=== PATIENT | male | born 1990 | race Caucasian/White ===

== ENCOUNTER 2017-05-16 16:08 | Emergency (ER) | payer BC, OTHER ==
[2017-05-16] MEDS ORDERED: Sodium Chloride 0.9% 2.5 ML Syringe FLUSH PRN (16:13)
[2017-05-16] MEDS ORDERED: Sodium Chloride 0.9% 10 ML Syringe FLUSH PRN (16:13)
[2017-05-16] MEDS ORDERED: Ondansetron 4 MG/2 ML SDV IVPUSH ONE (16:14)
[2017-05-16] MEDS ORDERED: Morphine 2 MG/ML Syringe IVPUSH ONE (16:14)
[2017-05-16] MEDS ORDERED: HYDROmorphone 1 MG/ML Syringe IVPUSH PRN ×2 (16:20→17:38)
[2017-05-16] MEDS ORDERED: Metoclopramide 10 MG/2 ML SDV IV ONE (16:20)
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
[2017-05-16 17:05] LABS: CHLORIDE,CL 108 mmol/L (98-110); SODIUM,NA 141 mmol/L (136-146)
[2017-05-16] MEDS ORDERED: Sodium Chloride 0.9% 1,000 ML IV ONE (17:25)
[2017-05-16] MEDS ORDERED: Ketorolac 30 MG/ML SDV IVPUSH ONE (18:11)
[2017-05-16 19:42] VITALS: BP 135/83
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
--- NOTE | 2017-05-17 11:52 | CR ---
EXAM DATE: 05/16/17 PATIENT'S AGE: 26 Patient: EARNEST BERGERON Facility: [place], [place] Site . Site : 1990 Study: XRay Chest [id number]/21/2017 5:00:21 PM Ordering Physician: Haja Rai Final Report: HISTORY: Pain, shortness of breath. FINDINGS: PA and lateral chest radiograph demonstrates EEG leads overlying the thorax. The cardiac silhouette is normal. The superior mediastinum is slender. No consolidation, pleural effusion or pneumothorax is seen. No displaced rib fracture is identified. IMPRESSION: No acute cardiopulmonary disease. Dictated by Rahel Salcido MD @ 05/16/2017 5:21:50 PM Dictated by: Rahel Salcido MD @ 05/16/2017 17:21:57 (Electronic Signature) Report Signed by Proxy. [facility]OREJosh
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
== END 2017-05-16 19:28 | disposition home or self-care (01) ==
LOC: MW.ED 16:08
DX: S09.8XXA Other specified injuries of head, initial encounter (principal); S19.9XXA Unspecified injury of neck, initial encounter; S63.502A Unspecified sprain of left wrist, initial encounter; R20.0 Anesthesia of skin; Z88.5 Allergy status to narcotic agent; W22.8XXA Striking against or struck by other objects, initial encounter; Y99.0 Civilian activity done for income or pay
CPT/HCPCS: 29125; 36415; 70450; 71010; 72125; 73100; 80053; 81003; 85025; 93005; J1170; J1885; J2765; J3360; J7040; 96361; 96374; 96375; 96376; 99283; 99285-25

== ENCOUNTER 2017-09-05 19:54 | Emergency (ER) | payer OTHER ==
[2017-09-05] MEDS ORDERED: Ketorolac 60 MG/2 ML SDV IM ONE (21:56)
[2017-09-05] MEDS ORDERED: Acetaminophen/HYDROcodone 325-7.5 MG Tab PO ONE (21:56)
[2017-09-05] MEDS ORDERED: Bacitracin Oint 1 GM U/D Packet TOP ONE (21:58)
--- NOTE | 2017-09-05 22:01 | EDM.PDOC ---
ED HPI GENERAL MEDICAL PROBLEM - General Chief Complaint: Lower Extremity Injury/Pain Stated Complaint: PT HURT LT LEG Time Seen by Provider: 09/05/17 21:52 - History of Present Illness INITIAL COMMENTS - FREE TEXT/NARRATIVE: HISTORY AND PHYSICAL: History of present illness: Patient is a 27-year-old healthy man who presents after sustaining a left knee injury while at work today. He was trying to jump over a hole and misjudged it and did not make it to the other side and impacted the front of his loredo area on the left causing an abrasion/superficial laceration and then landed full weight onto his leg potentially twisting his left knee. He did not hit his head pass out or black out and has no proximal hip pain and no other extremity complaints except the left knee and left tib-fib area. His ankle and foot on that side are fine and he has no neurosensory changes in the leg. He said is more painful if he tries to put weight on it. He has not taken anything for the pain prior to coming here. He says his tetanus shot is up-to-date Review of systems: As per history of present illness and below otherwise all systems reviewed and negative. Past medical history: As per history of present illness and as reviewed below otherwise noncontributory. Surgical history: As per history of present illness and as reviewed below otherwise noncontributory. Social history: No reported history of drug or alcohol abuse. Family history: As per history of present illness and as reviewed below otherwise noncontributory. Physical exam: Gen.: Well-developed well-nourished man who is nontoxic and is somewhat exaggerated with my exam. He is cooperative and vital signs are noted by me HEENT: Atraumatic, normocephalic,, negative for conjunctival pallor or scleral icterus, mucous membranes moist, throat clear, neck supple, nontender, trachea midline. There are no midline step-offs in his defects of the cervical spine Lungs: Clear to auscultation, breath sounds equal bilaterally, chest nontender. Heart: S1S2, regular rate and rhythm no overt murmurs Abdomen: Soft, nondistended, nontender. NABS Pelvis: Stable nontender. No lateral hip tenderness Genitourinary: Deferred. Rectal: Deferred. Extremities: Atraumatic and full range of motion of all extremities with the exception of the left knee and left tib-fib area. At the left knee there is diffuse tenderness anteriorly without any effusion ecchymosis soft tissue swelling or palpable bony deformity. The patient has no proximal thigh or hip pain. The patient is able to extend and flex very slowly and engage those muscles but with discomfort but no deficit. The tib-fib anteriorly is also tender with a superficial skin tear/abrasion noted and some soft tissue swelling of the area mid shaft. The distal ankle and foot are intact without tenderness or bony deformities and pulses are intact. The legs are, negative for cords or calf pain. Neurovascular unremarkable. Neuro: Awake, alert, oriented. Cranial nerves II through XII unremarkable. Cerebellum unremarkable. Motor and sensory unremarkable throughout. Exam nonfocal. Diagnostics: X-ray of left knee and tib-fib Therapeutics: Crutches knee immobilizer wound care to the abrasion with cleansing and bacitracin Impression: Left knee/tib-fib injury Definitive disposition and diagnosis as appropriate pending reevaluation and review of above. - Related Data Allergies Allergy/AdvReac Type Severity Reaction Status Date / Time ondansetron Allergy Hives Verified 09/05/17 21:48 [From Zofran (as hydrochloride)] morphine AdvReac Mild Other Verified 09/05/17 21:48 Home Meds: Home Meds . [No Known Home Meds] 09/05/17 [History] Past Medical History HEENT History: Reports: None Cardiovascular History: Reports: None Respiratory History: Reports: None Gastrointestinal History: Reports: Inflammatory Bowel Disease Genitourinary History: Reports: None Musculoskeletal History: Reports: None Neurological History: Reports: None Psychiatric History: Reports: Anxiety Endocrine/Metabolic History: Reports: None Hematologic History: Reports: None Immunologic History: Reports: None Oncologic (Cancer) History: Reports: None Dermatologic History: Reports: None - Infectious Disease History Infectious Disease History: Reports: Chicken Pox - Past Surgical History Head Surgeries/Procedures: Reports: None HEENT Surgical History: Reports: Oral Surgery Cardiovascular Surgical History: Reports: None GI Surgical History: Reports: Appendectomy, Colonoscopy, EGD Male Surgical History: Reports: None Neurological Surgical History: Reports: None Musculoskeletal Surgical History: Reports: Other (See Below) Other Musculoskeletal Surgeries/Procedures:: discogram Social & Family History - Family History Family Medical History: Noncontributory - Tobacco Use Smoking Status *Q: Current Some Day Smoker Years of Tobacco use: 10 Packs/Tins Daily: 0.3 - Caffeine Use Caffeine Use: Reports: Coffee, Energy Drinks, Soda, Tea - Recreational Drug Use Recreational Drug Use: Yes Drug Use in Last 12 Months: No Recreational Drug Type: Reports: Marijuana/Hashish Review of Systems - Review of Systems Review Of Systems: ROS reveals no pertinent complaints other than HPI. ED EXAM, GENERAL - Physical Exam Exam: See Below (See dictation) Course - Vital Signs Last Recorded V/S: Last Vital Signs Temp 36.3 C 09/05/17 21:41 Pulse 66 09/05/17 21:41 Resp 16 09/05/17 21:41 BP 147/80 H 09/05/17 21:41 Pulse Ox 98 09/05/17 21:41 - Orders/Labs/Meds Orders: Active Orders 24 hr Category Date Time Status Communication Order [RC] STAT Care 09/05/17 21:57 Active Knee 3V Lt [CR] Stat Exams 09/05/17 21:56 Taken Tibia Fibula Lt [CR] Stat Exams 09/05/17 21:56 Taken DME for Discharge [COMM] Stat Oth 09/05/17 23:07 Ordered Meds: Medications Discontinued Medications Generic Name Dose Route Start Last Admin Trade Name Freq PRN Reason Stop Dose Admin Hydrocodone Bitart/Acetaminophen 1 tab 09/05/17 21:56 09/05/17 22:14 [place] 325-7.5 Mg PO 09/05/17 21:57 1 tab ONETIME ONE Administration Bacitracin 1 dose 09/05/17 21:58 09/05/17 22:14 Bacitracin Oint 1 Gm TOP 09/05/17 21:59 1 dose ONETIME ONE Administration Ketorolac Tromethamine 60 mg 09/05/17 21:56 09/05/17 22:13 Toradol IM 09/05/17 21:57 60 mg ONETIME ONE Administration Departure - Departure Time of Disposition: 23:08 Disposition: Home, Self-Care 01 Condition: Good Clinical Impression: Left knee injury Qualifiers: Encounter type: initial encounter Qualified Code(s): S89.92XA - Unspecified injury of left lower leg, initial encounter Left leg injury Qualifiers: Encounter type: initial encounter Qualified Code(s): S89.92XA - Unspecified injury of left lower leg, initial encounter - Discharge Information Referrals: PCP,None [Primary Care Provider] - Forms: ED Department Discharge Additional Instructions: The following information is given to patients seen in the emergency department who are being discharged to home. This information is to outline your options for follow-up care. We provide all patients seen in our emergency department with a follow-up referral. The need for follow-up, as well as the timing and circumstances, are variable depending upon the specifics of your emergency department visit. If you don't have a primary care physician on staff, we will provide you with a referral. We always advise you to contact your personal physician following an emergency department visit to inform them of the circumstance of the visit and for follow-up with them and/or the need for any referrals to a consulting specialist. The emergency department will also refer you to a specialist when appropriate. This referral assures that you have the opportunity for followup care with a specialist. All of these measure are taken in an effort to provide you with optimal care, which includes your followup. Under all circumstances we always encourage you to contact your private physician who remains a resource for coordinating your care. When calling for followup care, please make the office aware that this follow-up is from your recent emergency room visit. If for any reason you are refused follow-up, please contact the [facility] emergency department at and ask to speak to the emergency department charge nurse. [facility]--Orthopedic clinic [address] [address] Ice and elevate the area and wear immobilizer at all times and loosen or remove at sleep times. Use crutches and do not weight-bear until you're followed up with the orthopedics clinic. Please use [id number] ibuprofen/Motrin in addition to the pain pills you have been given tonight and please call and follow-up in our orthopedics clinic in the next few days for reevaluation and further care. Keep wound clean and dry with mild soap and water and apply bacitracin or Neosporin. Return to ER as needed and as discussed - My Orders Last 24 Hours: My Active Orders 09/05/17 21:56 Knee 3V Lt [CR] Stat Tibia Fibula Lt [CR] Stat 09/05/17 21:57 Communication Order [RC] STAT 09/05/17 23:07 DME for Discharge [COMM] Stat - Assessment/Plan Last 24 Hours: My Active Orders 09/05/17 21:56 Knee 3V Lt [CR] Stat Tibia Fibula Lt [CR] Stat 09/05/17 21:57 Communication Order [RC] STAT 09/05/17 23:07 DME for Discharge [COMM] Stat
[2017-09-05 23:48] VITALS: BP 136/90
--- NOTE | 2017-09-06 16:21 | CR ---
EXAM DATE: 09/05/17 PATIENT'S AGE: 27 Patient: EARNEST BERGERON Facility: [place], [place] Site . Site : 1990 Study: XRay Knee Left [id number]/11/2018 10:55:11 PM Ordering Physician: Alonso Alberto Final Report: INDICATION: fell in hole LEFT KNEE AND LEFT TIBIA/FIBULA No fracture, dislocation, or destructive lesion of bone is seen. No significant arthritic changes or soft tissue abnormalities are identified. IMPRESSION: Negative left knee and tibia/fibula radiographs. YENNI MONTILLA MD [employer] Dictated by: Leno Montilla MD @ 09/05/2017 22:59:26 (Electronic Signature) Report Signed by Proxy. [facility]
--- NOTE | 2017-09-06 16:22 | CR ---
EXAM DATE: 09/05/17 PATIENT'S AGE: 27 Patient: EARNEST BERGERON Facility: [place], [place] Site . Site : 1990 Study: XRay Extremity Left tib/fib [id number]/11/2018 10:55:41 PM Ordering Physician: Alonso Alebrto Final Report: INDICATION: fell in hole LEFT KNEE AND LEFT TIBIA/FIBULA No fracture, dislocation, or destructive lesion of bone is seen. No significant arthritic changes or soft tissue abnormalities are identified. IMPRESSION: Negative left knee and tibia/fibula radiographs. YENNI MONTILLA MD [employer] [facility] Dictated by: Leno Montilla MD @ 09/05/2017 22:59:14 (Electronic Signature) Report Signed by Proxy. [facility]Josh
== END 2017-09-05 23:30 | disposition home or self-care (01) ==
LOC: MW.ED 19:54
DX: S81.812A Laceration without foreign body, left lower leg, initial encounter (principal); S80.212A Abrasion, left knee, initial encounter; F17.210 Nicotine dependence, cigarettes, uncomplicated; Z88.5 Allergy status to narcotic agent; Z88.8 Allergy status to other drugs, medicaments and biological substances; W17.2XXA Fall into hole, initial encounter; Y93.39 Activity, other involving climbing, rappelling and jumping off; Y99.0 Civilian activity done for income or pay
CPT/HCPCS: 73562; 73590; 96372; 99283; A9270; J1885